=== PATIENT | female | born 1995 ===

== ENCOUNTER 2020-05-12 17:06 | Inpatient (IN) | payer OTHER ==
[~2020-05-12] VITALS: Ht 162.6 cm; Wt 68.0 kg
[2020-05-13] MEDS ORDERED: FOLIC ACID1 MG (08:14)
[2020-05-13] MEDS ORDERED: ATABEX DHA 200200 MG (08:14)
== END 2020-05-14 10:08 | disposition home or self-care (01) | DRG 833 ==
LOC: OB/GYN 17:06
PROVIDERS: ADMIT Obstetrics & Gynecology; ATTEND Obstetrics & Gynecology
PROC: BF4CZZZ Ultrasonography of Hepatobiliary System, All (ICD-10-PCS; principal; 2020-05-13)
DX: O26.892 Other specified pregnancy related conditions, second trimester (principal); R10.32 Left lower quadrant pain; Z3A.19 19 weeks gestation of pregnancy

== ENCOUNTER → 2020-06-09 | Outpatient (CLI) | payer OTHER ==
[~2020-06-09] MED LIST: ATABEX DHA 200200 MG; FOLIC ACID1 MG
== END | disposition home or self-care (01) ==
LOC: PRENATAL 05-26 14:30
PROVIDERS: ATTEND Obstetrics & Gynecology Maternal & Fetal Medicine
DX: O35.0XX1 Maternal care for (suspected) central nervous system malformation in fetus, fetus 1 (principal); O35.3XX1 Maternal care for (suspected) damage to fetus from viral disease in mother, fetus 1; O98.512 Other viral diseases complicating pregnancy, second trimester; Z36.89 Encounter for other specified antenatal screening; Z3A.24 24 weeks gestation of pregnancy

== ENCOUNTER 2020-09-20 01:42 | Inpatient (IN) | payer OTHER ==
[~2020-09-20] VITALS: Ht 162.6 cm; Wt 2.7 kg
[2020-09-22] MEDS ORDERED: IBUPROFEN800 MG PO (09:23)
[2020-09-22] MEDS ORDERED: SIMETHICONE125 M1 PO (09:23)
[2020-09-22] MEDS ORDERED: DOCUSATE SODIU100 MG PO (09:23)
[2020-09-22] MEDS ORDERED: PREPLUS CA-FE1 EACH PO (09:23)
[2020-09-22] MEDS ORDERED: OXYC1TAB9 PO (09:23)
== END 2020-09-22 14:17 | disposition home or self-care (01) | DRG 787 ==
LOC: OB/GYN 01:42 → LDR 01:42 → OB/GYN 10:27
PROVIDERS: ADMIT Obstetrics & Gynecology; ATTEND Obstetrics & Gynecology
PROC: 4A1HXFZ Monitoring of Products of Conception, Cardiac Rhythm, External Approach (ICD-10-PCS; 2020-09-20)
PROC: 10D00Z1 Extraction of Products of Conception, Low, Open Approach (ICD-10-PCS; principal; 2020-09-20 08:00)
DX: O76 Abnormality in fetal heart rate and rhythm complicating labor and delivery (principal); O98.32 Other infections with a predominantly sexual mode of transmission complicating childbirth; O26.853 Spotting complicating pregnancy, third trimester; A63.0 Anogenital (venereal) warts; Z3A.38 38 weeks gestation of pregnancy; Z37.0 Single live birth; Z20.822 Contact with and (suspected) exposure to COVID-19